=== PATIENT | female | born 1980 | race Two or more races ===

== ENCOUNTER 2023-01-11 18:24 | Emergency (ER) | payer OTHER ==
[~2023-01-11] VITALS: Ht 167.6 cm; Wt 90.7 kg
[2023-01-11 19:48] LABS: HEMATOCRIT 35.2 % (36.0-45.00); HEMOGLOBIN 11.7 g/dL (12.0-15.00); MEAN CELL VOLUME 83.1 fL (80.00-100.00); MEAN CORPUSCULAR HEMOGLOBIN 27.7 pg (27.00-32.0); MEAN CORPUSCULAR HGB CONC 33.3 g/dl (32.0-36.0); PLATELET COUNT 253 K/uL (150-450); RED BLOOD COUNT 4.24 M/uL (4.00-6.00); RED CELL DISTRIBUTION WIDTH 15.3 % (11.5-14.5)
[2023-01-11 20:49] LABS: C-REACTIVE PROTEIN 0.65 MG/DL (0.00-0.29); CALCIUM 8.5 mg/dL (8.5-10.1); CREATININE SERUM 0.73 mg/dL (0.55-1.02); GFR 86.61; POTASSIUM 3.24 mEq/L (3.5-5.1)
== END 2023-01-12 01:09 | disposition home or self-care (01) ==
LOC: ER 18:24
PROVIDERS: General Practice
DX: I89.1 Lymphangitis (principal); L03.90 Cellulitis, unspecified; S61.459A Open bite of unspecified hand, initial encounter; W55.01XA Bitten by cat, initial encounter; Y99.9 Unspecified external cause status